=== PATIENT | female | born 1955 | race Caucasian/White ===

== ENCOUNTER 2018-04-24 09:13 | Outpatient (CLI) | payer OTHER ==
--- NOTE | 2018-04-27 13:22 | Mammography Report ---
Procedure Date: 04/24/2018 Accession Number: [id number] / [id number] Procedure: [facility]MEN - Screening Mammo Dig Bilat CPT Code: FULL RESULT: EXAM: Screening Mammo Dig Bilat DATE: 04/24/2018 9:47 AM CLINICAL HISTORY: 62-year-old for screening TECHNIQUE: Bilateral CC, laterally exaggerated CC, MLO views were obtained. COMPARISON: Outside mammograms from [place], [place] dated 11/21/2016, 10/23/2015, 10/13/2014, 10/14/2013, 10/01/2012, 09/06/2011, 08/28/2010 FINDINGS: The breasts demonstrate scattered fibroglandular densities bilaterally. Circumscribed nodule in the right outer breast is stable. A few coarse, typically benign calcifications are present. No suspicious masses, clustered microcalcifications, or regions of architectural distortion are identified. IMPRESSION: Benign findings RECOMMENDATION: Routine annual screening unless otherwise clinically indicated. BIRADS CATEGORY 2: Benign findings STANDARD QUALIFYING STATEMENTS: 1. This examination was reviewed with the aid of Computer-Aided Detection (CAD). 2. A negative or benign imaging report should not delay biopsy if clinically suspicious findings are present. Consider surgical consultation if warrented. More than 5% of cancers are not identified by imaging. 3. Dense breasts may obscure an underlying neoplasm.
== END 2018-04-24 09:14 | disposition home or self-care (01) ==
LOC: DI 09:13
PROVIDERS: ATTEND Family Medicine
DX: Z12.31 Encounter for screening mammogram for malignant neoplasm of breast (principal)
CPT/HCPCS: 77067

== ENCOUNTER 2020-05-23 09:22 | Outpatient (CLI) | payer OTHER ==
--- NOTE | 2020-05-24 09:13 | Mammography Report ---
BILATERAL DIGITAL DIAGNOSTIC MAMMOGRAM 3D/2D: 05/23/2020 CLINICAL: Inverted right nipple. Comparison is made to exams dated: 04/23/2019 mammogram, 04/24/2018 mammogram, 11/21/2016 mammogram, mammogram, 10/01/2012 mammogram, and 09/06/2011 mammogram - [facility]. Th ere are scattered fibroglandular elements in both breasts. There is a possible irregular equal density asymmetry with an indistinct margin in the right breast a t 7 o'clock anterior depth. This is not significantly changed. There is new nipple retraction which may be associated with the asymmetry. There is a long standing, stable mass in the lateral right breast at a mid depth. No other significant masses, calcifications, or other findings are seen in either breast. IMPRESSION: INCOMPLETE: NEEDS ADDITIONAL IMAGING EVALUATION The possible irregular equal density asymmetry and nipple retraction in the right breast is indetermi moses. An ultrasound is recommended. This was performed immediately following this exam. This exam was interpreted at Station ID: [id number]. NOTE: For mammograms, a report in lay terms will be sent to the patient. Approximately 15% of breast malignancies will not be visualized mammographically. In the management of a palpable breast mass, a negative mammogram must not discourage biopsy of a clinically suspicious lesion. Electronically Signed By: Jenna arteaga/:05/23/2020 10:59:48 ACR BI-RADS Category 0: Incomplete 3340F PARENCHYMAL PATTERN: (A) - The breast(s) demonstrate(s) scattered fibroglandular densities. BI-RADS CATEGORY: (0) - 0 Ultrasound [id number] Immediate follow-up LATERALITY: (B)
--- NOTE | 2020-05-24 09:13 | Ultrasound Report ---
LIMITED ULTRASOUND OF RIGHT BREAST: 05/23/2020 CLINICAL: Inverted right nipple. Comparison is made to exams dated: 05/23/2020 mammogram, 04/23/2019 mammogram, 04/24/2018 mammogram, mammogram, 10/14/2013 mammogram, and 10/01/2012 mammogram - [facility]. Ultrasound of the right breast retroareolar was performed. There is a dilated duct in the right breast at 8 o'clock in the retroareolar region. This correlates with fairly stable mammography findings and does not appear pathologic. Color flow imaging demonstr ates that there is vascularity present. No other sonographic findings to explain nipple retraction. IMPRESSION: PROBABLY BENIGN The dilated duct in the right breast is benign. Nipple retraction is probably benign. A follow-up mammogram and an ultrasound in 6 months is recommended to demonstrate stability. Findings and recommendations were conveyed to the patient at time of exam. This exam was interpreted at Station ID: [id number]. Electronically Signed By: Jenna arteaga/:05/23/2020 11:45:59 Ultrasound BI-RADS: 3 Probably benign BI-RADS CATEGORY: (3) - 3 Mammo and US [id number] 6 month follow-up LATERALITY: (B)
== END 2020-05-23 09:23 | disposition home or self-care (01) ==
LOC: DI 09:22
PROVIDERS: ATTEND Family Medicine
DX: R92.8 Other abnormal and inconclusive findings on diagnostic imaging of breast (principal)
CPT/HCPCS: 76642; 77066

== ENCOUNTER 2020-12-11 13:04 | Outpatient (CLI) | payer OTHER ==
--- NOTE | 2020-12-13 12:00 | Ultrasound Report ---
LIMITED ULTRASOUND OF RIGHT BREAST: 12/11/2020 CLINICAL: Patient returns for a 6 month follow up of the right breast. Comparison is made to exams dated: 05/23/2020 ultrasound, 05/23/2020 mammogram, 12/11/2020 mammogram, mammogram, 04/24/2018 mammogram, and 11/21/2016 mammogram - [facility]. Color flow and real-time ultrasound of the right breast retroareolar were performed. Barnes scale imag es of the real-time examination were reviewed. There is a stable minimally ectactic duct in the right breast at 8 o'clock in the retroareolar region . This may correlate with mammography findings. Color flow imaging demonstrates that there is an ad jacent vascularity. 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 No other suspicious sonographic abnormalities seen. A follow-up right mammogram and ultrasound in 6 months is recommended to demonstrate stability. The p atient will also be due for screening mammogram of the contralateral breast at that time. Findings and recommendations were conveyed to the patient during today's evaluation. This exam was interpreted at Station ID: [id number]. Electronically Signed By: Micky Cross M.D. aty/:12/11/2020 16:46:04 Ultrasound BI-RADS: 3 Probably benign BI-RADS CATEGORY: (3) - 3 Mammo and US [id number] 6 month follow-up LATERALITY: (B)
--- NOTE | 2020-12-13 12:00 | Mammography Report ---
UNILATERAL RIGHT DIGITAL DIAGNOSTIC MAMMOGRAM 3D/2D: 12/11/2020 CLINICAL: Additional evaluation requested from prior study. Patient returns today to evaluate an asym metry in the right breast. Comparison is made to exams dated: 05/23/2020 ultrasound, 05/23/2020 mammogram, 04/23/2019 mammogram, mammogram, 11/21/2016 mammogram, and 10/14/2013 mammogram - [facility]. Th ere are scattered fibroglandular elements in right breast. The previously described possible equal density asymmetry with an obscured margin in the right breast at 7 o'clock anterior depth is not significantly changed. The possible minimal nipple retraction as sociated with the asymmetry is not as conspicuous. No other significant masses or calcifications are seen in the breast. IMPRESSION: INCOMPLETE: NEEDS ADDITIONAL IMAGING EVALUATION Stable appearance of equal density asymmetry in the right breast 7 o'clock which remains indeterminat e. An ultrasound is recommended for further evaluation and is scheduled to immediately follow this exami nation. This exam was interpreted at Station ID: [id number]. NOTE: For mammograms, a report in lay terms will be sent to the patient. Approximately 15% of breast malignancies will not be visualized mammographically. In the management of a palpable breast mass, a negative mammogram must not discourage biopsy of a clinically suspicious lesion. Electronically Signed By: Micky Cross M.D. aty/:12/11/2020 16:43:07 ACR BI-RADS Category 0: Incomplete 3340F PARENCHYMAL PATTERN: (A) - The breast(s) demonstrate(s) scattered fibroglandular densities. BI-RADS CATEGORY: (0) - 0 Ultrasound [id number] Immediate follow-up LATERALITY: (R)
== END 2020-12-11 13:05 | disposition home or self-care (01) ==
LOC: DI 13:04
PROVIDERS: ATTEND Family Medicine
DX: R92.8 Other abnormal and inconclusive findings on diagnostic imaging of breast (principal)

== ENCOUNTER 2021-06-13 07:43 | Outpatient (CLI) | payer OTHER ==
--- NOTE | 2021-06-14 15:49 | Ultrasound Report ---
LIMITED ULTRASOUND OF RIGHT BREAST: 06/13/2021 CLINICAL: 6 month follow-up of rt breast asymmetry. Comparison is made to exams dated: 06/13/2021 mammogram, 12/11/2020 ultrasound, 12/11/2020 mammogram, 05/04 ultrasound, 05/23/2020 mammogram, and 04/23/2019 mammogram - [facility]. Color flow and real-time ultrasound of the right breast 8 o'clock, and retroareolar regions were perf ormed. Barnes scale images of the real-time examination were reviewed. There is a stable dilated duct in the right breast at 8 o'clock in the retroareolar region. This cor relates with mammography findings. 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 A follow-up mammogram and an ultrasound in 12 months is recommended. This exam was interpreted at Station ID: [id number]. Electronically Signed By: Jeramie Bolivar M.D. jr/:06/13/2021 09:07:42 Ultrasound BI-RADS: 3 Probably benign BI-RADS CATEGORY: (3) - 3 Mammo and US [id number] 12 month follow-up LATERALITY: (B)
--- NOTE | 2021-06-14 15:49 | Mammography Report ---
BILATERAL DIGITAL DIAGNOSTIC MAMMOGRAM 3D/2D: 06/13/2021 CLINICAL: Patient returns for a 6 month follow up of the right breast. Routine screening. Comparison is made to exams dated: 12/11/2020 mammogram, 05/23/2020 mammogram, 04/23/2019 mammogram, 04/04 mammogram, 11/21/2016 mammogram, and 10/14/2013 mammogram - [facility]. Ther e are scattered fibroglandular elements in both breasts. There is an equal density asymmetry in the right breast at 7 o'clock anterior depth. This is not sig nificantly changed. No other significant masses, calcifications, or other findings are seen in either breast. IMPRESSION: INCOMPLETE: NEEDS ADDITIONAL IMAGING EVALUATION The possible equal density asymmetry in the right breast is indeterminate. Ultrasound is recommended and is scheduled to follow this exam for further evaluation. This exam was interpreted at Station ID: [id number]. NOTE: For mammograms, a report in lay terms will be sent to the patient. Approximately 15% of breast malignancies will not be visualized mammographically. In the management of a palpable breast mass, a negative mammogram must not discourage biopsy of a clinically suspicious lesion. Electronically Signed By: Jeramie Bolivar M.D. jr/:06/13/2021 09:06:51 ACR BI-RADS Category 0: Incomplete 3340F PARENCHYMAL PATTERN: (A) - The breast(s) demonstrate(s) scattered fibroglandular densities. BI-RADS CATEGORY: (0) - 0 Ultrasound [id number] Immediate follow-up LATERALITY: (B)
== END 2021-06-13 07:44 | disposition home or self-care (01) ==
LOC: DI 07:43
PROVIDERS: ATTEND Family Medicine
DX: N63.0 Unspecified lump in unspecified breast (principal)